=== PATIENT | male | born 1950 | race Caucasian/White ===

== ENCOUNTER 2017-11-30 13:42 | Inpatient (IN) | payer MEDICARE ==
[~2017-11-30] VITALS: Ht 167.6 cm; Wt 57.8 kg
[2017-11-30] VITALS (11 sets, daily range): BP systolic 100–120; BP diastolic 53–72
--- NOTE | ~2017-11-30 | EKG ---
[place], [place] ELECTROCARDIOGRAM REPORT NAME: GENARO FISHER UNIT #: [id number] ROOM: [facility] DOCTOR: NEMESIO DRAFT REPORT BIRTHDATE: [birth year] [facility] Test Date: 2017-11-30 Test Time: 15:26:36 Pat Name: GENARO FISHER Department: Room: [facility] Gender: M [employer] Operator: : [id number] Requested By: JEFFREY ALBERT Order Number: [id number] Reading MD: Hermelinda Solis MD Measurements Intervals Elfrida Rate: 88 P: -75 DC: 107 QRS: 24 QRSD: 81 T: 65 QT: 349 QTc: 423 Interpretive Statements Sinus or ectopic atrial rhythm Short DC interval Electronically Signed On 12-01-2017 11:11:35 PDT by Hermelinda Solis MD CM:EKGRPT:ELECTROCARDIOGRAM REPORT [id number] JEFFREY HERR DRAFT REPORT JEFFREY ALBERT M.D.
--- NOTE | ~2017-11-30 | O ---
[place], [place] OPERATIVE NOTE NAME: GENARO FISHER UNIT #: [id number] ROOM: [facility] DOCTOR: CHRISTY BENNETT MD BIRTHDATE: [birth year] DOS: 12/02/2017 HISTORY OF PRESENT ILLNESS: The patient has presented with chief complaint of black tarry stool, profound anemia, drop in H and H, on nonsteroidal anti-inflammatory tablets, multiple Advil per day in addition to nicotine and alcohol. Today's procedure part of investigation is panendoscopy plus biopsy and photographic series. PREMEDICATION: Versed and propofol. SCOPE: Olympus forward-viewing gastroscope Q10 video. REPORT: After putting the patient in left lateral position and application of lubricant to the scope, the scope was introduced. Thereafter, under direct visualization, I advanced the length of esophagus without difficulty. Large hiatal hernia was noticed. Gastric pouch was entered. Multiple very large ulcerations deeply scarred in antrum were identified. A photograph was obtained. Margin of one of the ulcers was biopsied. The ulcers are estimated at 2.5 cm x 1 cm multiple. At proximity of pyloric ring with 2 cm distance. Duodenal bulb, second and third part within normal limit. Air was suctioned out. The patient was extubated, tolerated the procedure well. IMPRESSION: 1. Multi antral ulcerations secondary to nonsteroidal anti-inflammatory. 2. Large hiatal hernia. PLAN AND DISCUSSION: We are going to give him GERD diet. We are going to aggressively address his ulcers, double dose Protonix 40 mg IV b.i.d., sucralfate 2 grams slurry 2 hours before meals and at bedtime and while he is inpatient and as outpatient, Protonix 40 mg daily in the morning and Carafate 2 grams before meals and at bedtime for one month's duration. The patient advised to abstain from smoking, alcohol, particularly advised him to abstain from Advil product and nonsteroidal anti-inflammatory, perhaps his pain management should be undertaken with acetaminophen products or Ultram as alternatives. [place], [place] OPERATIVE NOTE NAME: GENARO FISHER UNIT #: [id number] ROOM: [facility] DOCTOR: CHRISTY BENNETT MD BIRTHDATE: [birth year] CHRISTY BENNETT MD CM:MAY:OPERATIVE NOTE 1906 [id number] CHRISTY BENNETT MD 12/03/17 0144 interface
--- NOTE | ~2017-11-30 | CON ---
[place], [place] REPORT OF CONSULTATION NAME: GENARO FISHER UNIT #: [id number] ROOM: [facility] DOCTOR: CHRISTY BENNETT MD BIRTHDATE: [birth year] DOS: 12/02/2017 GASTRO ENDOSCOPIC REPORT HISTORY OF PRESENT ILLNESS: A 67-year-old patient who has presented with chief complaint of periodic melanotic stool. The patient has been taking Advil 3-6 tablets a day p.r.n. for chronic back pain and he has been consuming large volumes of alcohol, particularly on binge. At the time of admission to the Emergency Room, his H and H was 7 and 21 with platelets of 160. Serum magnesium was 1.4, which was addressed. INR was normal. Electrolytes: Potassium was 3.4. Liver function tests were noticed borderline normal. CBC, drop in H and H to 6 and 20 was noticed. Hemoglobin A1c was normal. His latest CBC after transfusion, improved to 9 and 27. Comprehensive metabolic panel: Potassium is still low at 3.2 today. Alkaline phosphatase 40. PAST MEDICAL HISTORY: He has not seen physician he says all his life nearly. His past history otherwise so far, his nicotine dependency, alcohol dependency and chronic lower back pain. Advil, multiple tablets per day. Black tarry stool periodically. PAST SURGICAL HISTORY: Lower back. SOCIAL HISTORY: Smoker, alcohol consumer heavily. ALLERGIES: No known medication. REVIEW OF SYSTEMS: HEENT: Denies double vision, blurred vision. RESPIRATORY: Denies acute shortness of breath. CARDIOVASCULAR: Denies acute chest pain. DIGESTIVE SYSTEM: Black tarry stool. No dyspepsia. PHYSICAL EXAMINATION: GENERAL: Reveals frail patient. HEENT: Within normal limits. Mouth and buccal mucosa benign, extremely poor dental hygiene. NECK: Supple, no thyromegaly, no cervical lymphadenopathy. CHEST: Symmetric anatomy, COPD characteristic, scattered rhonchi. HEART: Normal sinus rhythm, no gallop, no murmur. ABDOMEN: Soft. No hepato-organomegaly. Bowel sounds present. No pulsatile mass. EXTREMITIES: No cyanosis, no pedal edema. NEUROLOGIC: Alert, oriented to time, place, person. IMPRESSION: Intermittent black tarry stool on nonsteroidal anti-inflammatory, multiple tablets a day, smoker and alcohol consumer simultaneously, ruling out peptic ulcer disease as a source of bleed. PLAN AND DISCUSSION: Endoscopic assessment of upper GI tract. [place], [place] REPORT OF CONSULTATION NAME: GENARO FISHER UNIT #: [id number] ROOM: [facility] DOCTOR: SABRINA FORTE,CHRISTY BIRTHDATE: [birth year] Other adjunctive diagnoses as outlined in paragraph of past medical, surgical history. CHRISTY BENNETT MD CM:CONSTR:REPORT OF CONSULTATION 1906 12/03/17 0135 interface
[2017-11-30] MEDS ORDERED: IBU800 M1 PO (13:56)
[2017-11-30 14:03] LABS: BASO % 0.1 % (0.0-1.0); HEMATOCRIT 21.8 % (42.0-52.0); HEMOGLOBIN 7.4 g/dl (14.0-18.0); LYMPH % 13.1 % (27.0-41.0); MEAN CELL VOLUME 89.7 fl (80.0-94.0); MEAN CORPUSCULAR HGB 30.5 pg (27.0-31.0); MEAN CORPUSCULAR HGB CONC 33.9 g/dl (33.0-37.0); MEAN PLATELET VOLUME 10.3 fl (9.6-12.3); MONO # 0.4 10*3/uL (0.1-1.0); MONO % 5.6 % (3.0-9.0); NEUT # 6.3 10*3/uL (2.3-7.9); NEUT % 80.4 % (47.0-73.0); PLATELET COUNT AUTOMATED 160 10*3/uL (130-400); RED BLOOD COUNT 2.43 10*6/uL (4.50-5.90); RED CELL DISTRI WIDTH 15.6 % (0-14.5); WHITE BLOOD COUNT 7.8 10*3/uL (4.8-10.8)
[2017-11-30 14:20] LABS: ALBUMIN 2.7 gm/dl (3.1-4.5); ALKALINE PHOSPHATASE 47 U/L (45-117); BUN 49 mg/dl (7-24); CHLORIDE 105 mmol/L (98-107); CREATININE 0.76 mg/dL (0.70-1.30); POTASSIUM 3.4 mmol/L (3.5-5.1); SGOT/AST 39 IU/L (3-35); SGPT/ALT 51 U/L (12-78); SODIUM 139 mmol/L (136-145); TOTAL PROTEIN 5.9 gm/dL (6.4-8.2)
[2017-12-01] VITALS (11 sets, daily range): BP systolic 97–132; BP diastolic 41–59
[2017-12-01 06:01] LABS: BASO % 0.4 % (0.0-1.0); EOS # 0.1 10*3/uL (0.0-0.4); EOS % 1.5 % (1.0-4.0); HEMATOCRIT 20.4 % (42.0-52.0); HEMOGLOBIN 6.9 g/dl (14.0-18.0); LYMPH # 0.8 10*3/uL (1.3-4.4); LYMPH % 16.8 % (27.0-41.0); MEAN CELL VOLUME 91.9 fl (80.0-94.0); MEAN CORPUSCULAR HGB 31.1 pg (27.0-31.0); MEAN CORPUSCULAR HGB CONC 33.8 g/dl (33.0-37.0); MEAN PLATELET VOLUME 11.3 fl (9.6-12.3); MONO # 0.4 10*3/uL (0.1-1.0); MONO % 8.2 % (3.0-9.0); NEUT # 3.5 10*3/uL (2.3-7.9); NEUT % 72.3 % (47.0-73.0); RED BLOOD COUNT 2.22 10*6/uL (4.50-5.90); RED CELL DISTRI WIDTH 15.1 % (0-14.5); WHITE BLOOD COUNT 4.8 10*3/uL (4.8-10.8)
[2017-12-01 06:02] LABS: PLATELET COUNT AUTOMATED 111 10*3/uL (130-400)
[2017-12-01 06:12] LABS: ALBUMIN 2.2 gm/dl (3.1-4.5); ALKALINE PHOSPHATASE 37 U/L (45-117); CHLORIDE 109 mmol/L (98-107); CREATININE 0.56 mg/dL (0.70-1.30); POTASSIUM 2.9 mmol/L (3.5-5.1); SGOT/AST 29 IU/L (3-35); SGPT/ALT 36 U/L (12-78); SODIUM 139 mmol/L (136-145); TOTAL PROTEIN 4.8 gm/dL (6.4-8.2)
[2017-12-01 06:25] LABS: BUN 23 mg/dl (7-24)
[2017-12-02] VITALS (10 sets, daily range): BP systolic 118–156; BP diastolic 60–87
[2017-12-02 05:59] LABS: ALBUMIN 2.2 gm/dl (3.1-4.5); CHLORIDE 109 mmol/L (98-107); CREATININE 0.54 mg/dL (0.70-1.30); POTASSIUM 3.2 mmol/L (3.5-5.1); SGOT/AST 35 IU/L (3-35); SGPT/ALT 40 U/L (12-78); SODIUM 140 mmol/L (136-145); TOTAL PROTEIN 4.9 gm/dL (6.4-8.2)
[2017-12-02 06:00] LABS: ALKALINE PHOSPHATASE 40 U/L (45-117); BASO % 0.5 % (0.0-1.0); EOS # 0.1 10*3/uL (0.0-0.4); EOS % 2.5 % (1.0-4.0); LYMPH # 0.9 10*3/uL (1.3-4.4); LYMPH % 15.8 % (27.0-41.0); MEAN CELL VOLUME 91.3 fl (80.0-94.0); MEAN CORPUSCULAR HGB 31.3 pg (27.0-31.0); MEAN CORPUSCULAR HGB CONC 34.3 g/dl (33.0-37.0); MEAN PLATELET VOLUME 10.7 fl (9.6-12.3); MONO # 0.4 10*3/uL (0.1-1.0); MONO % 7.1 % (3.0-9.0); NEUT # 4.1 10*3/uL (2.3-7.9); NEUT % 73.6 % (47.0-73.0); PLATELET COUNT AUTOMATED 127 10*3/uL (130-400); RED CELL DISTRI WIDTH 14.6 % (0-14.5); WHITE BLOOD COUNT 5.5 10*3/uL (4.8-10.8)
[2017-12-02 06:20] LABS: HEMATOCRIT 27.4 % (42.0-52.0); HEMOGLOBIN 9.4 g/dl (14.0-18.0)
[2017-12-02 07:04] LABS: BUN 10 mg/dl (7-24)
[2017-12-03] VITALS: BP 132/70
[2017-12-03 04:00] VITALS: BP 140/70
[2017-12-03 05:54] LABS: ALBUMIN 2.1 gm/dl (3.1-4.5); ALKALINE PHOSPHATASE 45 U/L (45-117); BUN 7 mg/dl (7-24); CHLORIDE 102 mmol/L (98-107); CREATININE 0.57 mg/dL (0.70-1.30); POTASSIUM 2.9 mmol/L (3.5-5.1); SGOT/AST 25 IU/L (3-35); SGPT/ALT 32 U/L (12-78); SODIUM 135 mmol/L (136-145); TOTAL PROTEIN 4.9 gm/dL (6.4-8.2)
[2017-12-03 05:56] LABS: BASO % 0.3 % (0.0-1.0); EOS # 0.1 10*3/uL (0.0-0.4); EOS % 1.5 % (1.0-4.0); HEMATOCRIT 27.5 % (42.0-52.0); HEMOGLOBIN 9.4 g/dl (14.0-18.0); LYMPH # 0.8 10*3/uL (1.3-4.4); LYMPH % 12.4 % (27.0-41.0); MEAN CORPUSCULAR HGB 31.4 pg (27.0-31.0); MEAN CORPUSCULAR HGB CONC 34.2 g/dl (33.0-37.0); MEAN PLATELET VOLUME 10.6 fl (9.6-12.3); MONO # 0.6 10*3/uL (0.1-1.0); MONO % 8.8 % (3.0-9.0); NEUT # 5.1 10*3/uL (2.3-7.9); NEUT % 76.6 % (47.0-73.0); RED BLOOD COUNT 2.99 10*6/uL (4.50-5.90); RED CELL DISTRI WIDTH 14.3 % (0-14.5); WHITE BLOOD COUNT 6.7 10*3/uL (4.8-10.8)
[2017-12-03 06:08] LABS: PLATELET COUNT AUTOMATED 167 10*3/uL (130-400)
[2017-12-03 08:00] VITALS: BP 137/69
[2017-12-03 12:00] VITALS: BP 121/68
[2017-12-03 16:00] VITALS: BP 124/63
[2017-12-03 20:00] VITALS: BP 117/54
[2017-12-04] VITALS: BP 120/53
[2017-12-04 06:27] LABS: BASO % 0.4 % (0.0-1.0); EOS # 0.1 10*3/uL (0.0-0.4); EOS % 2.5 % (1.0-4.0); HEMATOCRIT 27.8 % (42.0-52.0); HEMOGLOBIN 9.6 g/dl (14.0-18.0); LYMPH # 0.8 10*3/uL (1.3-4.4); LYMPH % 14.7 % (27.0-41.0); MEAN CELL VOLUME 91.7 fl (80.0-94.0); MEAN CORPUSCULAR HGB 31.7 pg (27.0-31.0); MEAN CORPUSCULAR HGB CONC 34.5 g/dl (33.0-37.0); MEAN PLATELET VOLUME 10.4 fl (9.6-12.3); MONO # 0.6 10*3/uL (0.1-1.0); MONO % 10.1 % (3.0-9.0); NEUT # 4.1 10*3/uL (2.3-7.9); NEUT % 71.8 % (47.0-73.0); RED BLOOD COUNT 3.03 10*6/uL (4.50-5.90); WHITE BLOOD COUNT 5.7 10*3/uL (4.8-10.8)
[2017-12-04 06:35] LABS: PLATELET COUNT AUTOMATED 225 10*3/uL (130-400)
[2017-12-04 06:59] LABS: ALBUMIN 2.1 gm/dl (3.1-4.5); ALKALINE PHOSPHATASE 42 U/L (45-117); BUN 5 mg/dl (7-24); SGOT/AST 19 IU/L (3-35); SGPT/ALT 27 U/L (12-78); TOTAL PROTEIN 4.9 gm/dL (6.4-8.2)
[2017-12-04 07:07] LABS: CHLORIDE 104 mmol/L (98-107); POTASSIUM 3.4 mmol/L (3.5-5.1); SODIUM 138 mmol/L (136-145)
[2017-12-04 08:00] VITALS: BP 109/64
[2017-12-04] MEDS ORDERED: PROTONIX40 MG PO (10:58)
[2017-12-04] MEDS ORDERED: Carafate1 GM/10 ML PO (10:58)
== END 2017-12-04 13:42 | disposition home or self-care (01) | DRG 377 ==
LOC: ED 13:42 → ICCU 16:38 → EDHOLD 16:38 → 5E 16:59 → ICCU 17:47 → 5E 12-03 18:16
PROVIDERS: Emergency Medicine; Family Medicine; Internal Medicine; Internal Medicine Gastroenterology
PROC: 30233N1 Transfusion of Nonautologous Red Blood Cells into Peripheral Vein, Percutaneous Approach (ICD-10-PCS; 2017-12-01)
PROC: 0DB68ZX Excision of Stomach, Via Natural or Artificial Opening Endoscopic, Diagnostic (ICD-10-PCS; principal; 2017-12-02)
DX: K29.71 Gastritis, unspecified, with bleeding (principal); E43 Unspecified severe protein-calorie malnutrition; E83.42 Hypomagnesemia; E88.09 Other disorders of plasma-protein metabolism, not elsewhere classified; D62 Acute posthemorrhagic anemia; F10.10 Alcohol abuse, uncomplicated; E86.0 Dehydration; E87.6 Hypokalemia; K25.4 Chronic or unspecified gastric ulcer with hemorrhage; G89.29 Other chronic pain; M54.9 Dorsalgia, unspecified; T39.395A Adverse effect of other nonsteroidal anti-inflammatory drugs [NSAID], initial encounter; F17.210 Nicotine dependence, cigarettes, uncomplicated; K44.9 Diaphragmatic hernia without obstruction or gangrene; R00.0 Tachycardia, unspecified; R73.9 Hyperglycemia, unspecified; R74.0 Nonspecific elevation of levels of transaminase and lactic acid dehydrogenase [LDH]; Z71.6 Tobacco abuse counseling; Z98.1 Arthrodesis status; Z83.3 Family history of diabetes mellitus; Z82.49 Family history of ischemic heart disease and other diseases of the circulatory system; Z79.1 Long term (current) use of non-steroidal anti-inflammatories (NSAID); Y92.89 Other specified places as the place of occurrence of the external cause; Z68.20 Body mass index [BMI] 20.0-20.9, adult

== ENCOUNTER → 2017-12-12 | Outpatient (CLI) | payer MEDICARE ==
[~2017-12-12] MED LIST: Carafate1 GM/10 ML PO; IBU800 M1 PO; PROTONIX40 MG PO
== END | disposition home or self-care (01) ==
LOC: RESCLI 04:30
DX: Z09 Encounter for follow-up examination after completed treatment for conditions other than malignant neoplasm (principal); K29.70 Gastritis, unspecified, without bleeding; K25.3 Acute gastric ulcer without hemorrhage or perforation; K44.9 Diaphragmatic hernia without obstruction or gangrene; M54.9 Dorsalgia, unspecified; G89.29 Other chronic pain; Z72.0 Tobacco use; Z71.6 Tobacco abuse counseling; Z53.20 Procedure and treatment not carried out because of patient's decision for unspecified reasons; Z76.89 Persons encountering health services in other specified circumstances

== ENCOUNTER 2019-11-13 22:34 | Inpatient (IN) | payer MEDICARE ==
[~2019-11-13] VITALS: Ht 167.6 cm; Wt 57.4 kg
[2019-11-13 22:35] VITALS: BP 137/80
--- NOTE | 2019-11-13 23:17 | NUR ---
300 BOLUS NS PER EMS 1L FLUIDS RUNNING UPON ARRIVAL PER EMS
[2019-11-13 23:29] LABS: BASO % 0.8 % (0.0-1.0); EOS % 0.8 % (1.0-4.0); HEMATOCRIT 37.1 % (42.0-52.0); LYMPH # 0.3 10*3/uL (1.3-4.4); LYMPH % 10.4 % (27.0-41.0); MEAN CELL VOLUME 82.8 fl (80.0-94.0); MEAN CORPUSCULAR HGB 30.1 pg (27.0-31.0); MEAN CORPUSCULAR HGB CONC 36.4 g/dl (33.0-37.0); MEAN PLATELET VOLUME 10.2 fl (9.6-12.3); MONO # 0.4 10*3/uL (0.1-1.0); NEUT # 1.7 10*3/uL (2.3-7.9); NEUT % 69.6 % (47.0-73.0); PLATELET COUNT AUTOMATED 132 10*3/uL (130-400); RED BLOOD COUNT 4.48 10*6/uL (4.50-5.90); RED CELL DISTRI WIDTH 14.5 % (0-14.5); WHITE BLOOD COUNT 2.5 10*3/uL (4.8-10.8)
[2019-11-13 23:43] LABS: ALBUMIN 2.8 gm/dl (3.1-4.5); ALKALINE PHOSPHATASE 93 U/L (45-117); BUN 6 mg/dl (7-24); CHLORIDE 85 mmol/L (98-107); CREATININE 0.67 mg/dL (0.70-1.30); LIPASE 262 U/L (73-393); POTASSIUM 2.6 mmol/L (3.5-5.1); SGOT/AST 148 IU/L (3-35); SGPT/ALT 243 U/L (12-78); SODIUM 122 mmol/L (136-145); TROPONIN I < 0.015 ng/ml (<0.045)
[2019-11-14 00:05] LABS: COLOR YELLOW (YELLOW)
[2019-11-14 00:06] LABS: BILIRUBIN NEGATIVE (NEGATIVE); BLOOD NEGATIVE (NEGATIVE); CLARITY CLEAR (CLEAR); GLUCOSE NEGATIVE (NEGATIVE); KETONE NEGATIVE (NEGATIVE); LEUKO ESTERASE NEGATIVE (NEGATIVE); NITRITE NEGATIVE (NEGATIVE); PH 7.5 (5.0-9.0); SPECIFIC GRAVITY 1.005 (1.005-1.030); UROBILINOGEN 0.2 E.U./dl (0.2-1.0)
[2019-11-14 00:08] LABS: BACTERIA TRACE; EPITHELIAL CELLS 0-2; RBC 0-2 rbc/hpf (0-2); WBC 0-2 wbc/hpf (0-5)
[2019-11-14 01:08] LABS: ACT PARTIAL THROMBO TIME 31.3 SECONDS (20.0-32.1); INTERNATIONAL NORM RATIO 1.1 (2.0-3.5)
[2019-11-14 01:14] LABS: URINE AMPHETAMINES < 1000 (1000ng/ml); URINE BARBITURATES < 200 (200ng/ml); URINE BENZODIAZEPINES < 200 (200ng/ml); URINE CANNABINOIDS (THC) < 50 (50ng/ml); URINE COCAINE < 300 (300ng/ml); URINE METHADONE < 300 (300ng/ml); URINE OPIATES < 300 (300ng/ml); URINE PHENCYCLIDINE < 25 (25ng/ml)
[2019-11-14 01:20] LABS: ACETAMINOPHEN (TYLENOL) < 5.0 ug/ml (10-30); ETHYL ALCOHOL < 3.0 mg/dl (<3)
--- NOTE | 2019-11-14 01:30 | NUR ---
PT REFUSED PHOTOS OPEN AREA OF RASH LOWER BACK/COCCYX REGION/RIGHT FOREARM, PT STATES HE HAS BEEN TREATED BY A [place] TECHNICIAN FOR RASH, STATES HE HAS CREAM BUT HAS NOT BEEN USING IT
--- NOTE | 2019-11-14 01:50 | NUR ---
PT STATES HE IS "FEELING MUCH BETTER" STATES "HE THINKS HE COULD GO HOME"
[2019-11-14 02:00] VITALS: BP 127/64
--- NOTE | 2019-11-14 02:03 | NUR ---
PT HAS RASH ON BILAT ARMS, CHEST, BILAT LOWER EXTREM
--- NOTE | 2019-11-14 02:04 | NUR ---
FAXED SBAR TO [facility]E
--- NOTE | 2019-11-14 02:10 | NUR ---
PT GAIT UNSTEADY UPON AMBULATING TO BED
[2019-11-14 02:12] VITALS: BP 127/64
--- NOTE | 2019-11-14 02:12 | NUR ---
A 69, admitted to , under the services of PETER Riojas DO with a diagnosis of LEUKOPENIA, RASH AND OTHER NON-SPECIFIC SKIN ERUPTION, HYPOKALEMIA, HYPONATREMIA, HYPOMAGNASEMIA. Chief complaint is WEAKNESS, DIZZINESS. [facility] Monitor applied. Initial assessment completed. Vital signs taken and recorded. PETER RIOJAS DO notified of admission to the unit. Orders received. See assessment for past medical history, medications and allergies. Patient and/or family oriented to unit. visitation policy reviewed. Clothing/patient valuable form completed. GREGORIO CHOPRA
--- NOTE | 2019-11-14 03:27 | NUR ---
PATIENT REFUSED TO HAVE PHOTOS TAKEN OF RASH ON BILATERAL ARMS, CHEST AND LUMBAR AREA. ALSO REFUSED TO HAVE NURSE LOOK AT RASH ON LOWER BACK AND COCCYX AREA AND REFUSES TO HAVE ANY TREATMENT. SAYS HE FOLLOWS WITH A WAREHOUSE HAND.
[2019-11-14 06:34] LABS: BASO % 0.7 % (0.0-1.0); HEMATOCRIT 37.1 % (42.0-52.0); LYMPH # 0.3 10*3/uL (1.3-4.4); LYMPH % 10.7 % (27.0-41.0); MEAN CELL VOLUME 84.9 fl (80.0-94.0); MEAN CORPUSCULAR HGB 29.7 pg (27.0-31.0); MEAN PLATELET VOLUME 11.5 fl (9.6-12.3); MONO # 0.4 10*3/uL (0.1-1.0); MONO % 14.7 % (3.0-9.0); NEUT # 2.2 10*3/uL (2.3-7.9); NEUT % 72.2 % (47.0-73.0); PLATELET COUNT AUTOMATED 127 10*3/uL (130-400); RED BLOOD COUNT 4.37 10*6/uL (4.50-5.90); RED CELL DISTRI WIDTH 14.9 % (0-14.5)
[2019-11-14 06:39] LABS: ALBUMIN 2.6 gm/dl (3.1-4.5); ALKALINE PHOSPHATASE 92 U/L (45-117); BUN 6 mg/dl (7-24); CHLORIDE 95 mmol/L (98-107); CHOLESTEROL 128 mg/dL (<200); CREATININE 0.67 mg/dL (0.70-1.30); FREE T4 1.18 ng/dl (0.76-1.46); HDL CHOLESTEROL 39 mg/dl (40-60); LDL CHOLESTEROL 75 mg/dL (9-159); POTASSIUM 3.4 mmol/L (3.5-5.1); SGOT/AST 120 IU/L (3-35); SGPT/ALT 221 U/L (12-78); SODIUM 130 mmol/L (136-145); TOTAL PROTEIN 5.9 gm/dL (6.4-8.2); TRIGLYCERIDES 72 mg/dl (<150); VLDL CHOLESTEROL 14 mg/dL (6-40)
[2019-11-14 08:00] VITALS: BP 113/49
[2019-11-14 08:05] LABS: VITAMIN D, 25-HYDROXY 47.8 ng/mL (30-100)
--- NOTE | 2019-11-14 08:17 | NUR ---
PT REFUSED LOVENOX DESPITE EDUCATION.
--- NOTE | 2019-11-14 08:51 | NUR ---
ASSISTED PATIENT OOB TO RESTROOM. STEADY WITH 1 ASSIST. WILL CONTINUE TO MONITOR.
[2019-11-14 12:00] VITALS: BP 122/63
--- NOTE | 2019-11-14 12:01 | NUR ---
PT MEDICATED WITH TYLENOL PO PER PRN ORDER FOR C/O HEADACHE. WILL MONITOR EFFECTIVENESS.
[2019-11-14 12:14] LABS: BUN 5 mg/dl (7-24); CHLORIDE 96 mmol/L (98-107); CREATININE 0.63 mg/dL (0.70-1.30); SODIUM 129 mmol/L (136-145)
--- NOTE | 2019-11-14 13:01 | NUR ---
TYLENOL EFFECTIVE PER PT. WILL CONTINUE TO MONITOR.
[2019-11-14 16:00] VITALS: BP 119/58
--- NOTE | 2019-11-14 19:00 | NUR ---
ASSUMED CARE FOR THIS PT AT THIS TIME. PT DENIES DIZZINESS. GENERAL WEAKNESS NOTED. CALL LIGHT IN REACH.
[2019-11-14 20:00] VITALS: BP 117/60
[2019-11-15] VITALS: BP 130/75
--- NOTE | 2019-11-15 04:22 | NUR ---
24 HR chart check completed.
[2019-11-15 06:14] LABS: BASO % 0.8 % (0.0-1.0); EOS % 1.6 % (1.0-4.0); HEMATOCRIT 37.5 % (42.0-52.0); LYMPH # 0.5 10*3/uL (1.3-4.4); LYMPH % 18.5 % (27.0-41.0); MEAN CELL VOLUME 85.6 fl (80.0-94.0); MEAN CORPUSCULAR HGB 29.9 pg (27.0-31.0); MEAN CORPUSCULAR HGB CONC 34.9 g/dl (33.0-37.0); MEAN PLATELET VOLUME 10.1 fl (9.6-12.3); MONO # 0.4 10*3/uL (0.1-1.0); MONO % 14.6 % (3.0-9.0); NEUT # 1.6 10*3/uL (2.3-7.9); NEUT % 61.7 % (47.0-73.0); PLATELET COUNT AUTOMATED 164 10*3/uL (130-400); RED BLOOD COUNT 4.38 10*6/uL (4.50-5.90); RED CELL DISTRI WIDTH 15.3 % (0-14.5); WHITE BLOOD COUNT 2.5 10*3/uL (4.8-10.8)
[2019-11-15 06:34] LABS: BUN 6 mg/dl (7-24); CHLORIDE 96 mmol/L (98-107); CREATININE 0.67 mg/dL (0.70-1.30); POTASSIUM 3.7 mmol/L (3.5-5.1); SODIUM 131 mmol/L (136-145)
[2019-11-15 08:00] VITALS: BP 132/77
--- NOTE | 2019-11-15 08:16 | NUR ---
PATIENT SITTING UP IN BED, EATING BREAKFAST. RESPIRATIONS EASY, REGULAR ON RA. PT APPEARS MUCH MORE ALERT AND ORIENTED THIS AM. DENIES ANY DIZZINESS UPON STANDING. WILL CONTINUE TO MONITOR. VSS. CALL LIGHT WITHIN REACH.
--- NOTE | 2019-11-15 11:46 | NUR ---
IV FLUIDS INITIATED AT THIS TIME PER ORDER. WILL CONTINUE TO MONITOR.
[2019-11-15 12:00] VITALS: BP 146/82
[2019-11-15 16:00] VITALS: BP 140/71
--- NOTE | 2019-11-15 19:49 | NUR ---
PATIENT RESTING IN BED WITH NO NEEDS MADE. BED IN LOWEST POSITION, CALL LIGHT IN REACH
[2019-11-15 20:00] VITALS: BP 127/56
--- NOTE | 2019-11-15 23:29 | NUR ---
PATIENT MEDICATED WITH PRN RESTORIL FOR C/O INSOMNIA. WILL MONITOR
[2019-11-16] VITALS: BP 130/67
--- NOTE | 2019-11-16 00:29 | NUR ---
MEDICATION EFFECTIVE. PATIENT RESTING WITH EYES CLOSED
--- NOTE | 2019-11-16 02:48 | NUR ---
24 HR chart check completed.
[2019-11-16 06:10] LABS: BUN 7 mg/dl (7-24); CHLORIDE 97 mmol/L (98-107); CREATININE 0.58 mg/dL (0.70-1.30); POTASSIUM 3.7 mmol/L (3.5-5.1); SODIUM 131 mmol/L (136-145)
[2019-11-16 06:25] LABS: EOS % 1.3 % (1.0-4.0); LYMPH # 0.6 10*3/uL (1.3-4.4); MEAN CELL VOLUME 84.5 fl (80.0-94.0); MEAN CORPUSCULAR HGB 29.5 pg (27.0-31.0); MEAN CORPUSCULAR HGB CONC 34.9 g/dl (33.0-37.0); MEAN PLATELET VOLUME 10.2 fl (9.6-12.3); MONO # 0.4 10*3/uL (0.1-1.0); MONO % 14.3 % (3.0-9.0); NEUT # 1.9 10*3/uL (2.3-7.9); NEUT % 63.1 % (47.0-73.0); PLATELET COUNT AUTOMATED 200 10*3/uL (130-400); RED BLOOD COUNT 4.38 10*6/uL (4.50-5.90); RED CELL DISTRI WIDTH 15.2 % (0-14.5)
--- NOTE | 2019-11-16 06:38 | NUR ---
PATIENT PULLED OUT IV AFTER BEING TOLD IT NEEDED TO REMAIN IN. PATIENT IS REFUSING NEW IV PLACEMENT AFTER EDUCATION PROVIDED
--- NOTE | 2019-11-16 07:49 | NUR ---
PHYSICAL THERAPY Screen and PT eval received will follow thank you. Sara Vazquez PT
--- NOTE | 2019-11-16 07:51 | NUR ---
Occupational therapy order and nursing screen received. Will follow up with patient for completion of an OT evaluation. Thank you. Roshni Meyer, OTR/L
[2019-11-16 08:00] VITALS: BP 106/60
--- NOTE | 2019-11-16 08:00 | NUR ---
PATIENT AWAKE, ALERT AND ORIENTED SITTING UP IN BED. NO STATED COMPLAINTS AT THIS TIME. DENIES ANY PAIN. STATES HE IS READY TO GO HOME. BED IN LOWEST LOCKED POSITION. CALL LIGHT WITHIN REACH. PT REPOSITIONS SELF AND IS ENCOURAGED TO DO SO. WILL CONTINUE TO MONITOR.
--- NOTE | 2019-11-16 08:02 | NUR ---
GENARO FISHER [id number] Please refer to the physician's history and physical for past medical history, comorbid conditions, and allergies. Diagnosis: LEUKOPENIA, RASH & OTHER NONSPECIFIC SKIN ERUPTION Mack Score: 21,LOW OR NO RISK WOUND DESCRIPTIONS: Patient states he followed with dermatology and they told him that it would just go away on its own. Dermatology did not tell him what it was. Patient states that the [facility] gave him a cream for these areas but cannot recall the name. Patient has red and pink areas to bilateral upper extremities, trunk and bilateral lower extremities. No drainage or open areas noted at time of assessment. Areas are dry. Patient denied any other wounds at time of assessment. Patient refused to have areas measured or photographed. Surface the patient is resting on: Isoflex SKIN PREVENTION RECOMMENDATION: 1. Pressure redistribution support surface as appropriate 2. Elevate heels 3. Remove boots/TEDS every shift and reapply 4. Head of bed 30 degrees as tolerated 5. Assess nutrition and hydration 6. Manage moisture 7. Avoid the use of containment devices while in bed 8. Use absorptive products on surfaces limit layers of linens on bed 9. Turn and reposition every 1-2 hours in bed and every 1 hour in chair as tolerated 10. Weight shifts every 15 minutes while up in chair 11. Offloading with pillows or device to keep heels elevated off bed 12. Monitor skin at least every shift 13. Inspect under medical devices twice a day WOUND TREATMENT RECOMMENDATIONS: Follow up with dermatology when discharged. Aquaphor to bilateral upper extremities, trunk and bilateral lower legs twice a day.
--- NOTE | 2019-11-16 09:47 | NUR ---
Dr. Devries notified of wound care recommendations.
--- NOTE | 2019-11-16 10:11 | NUR ---
PHYSICAL THERAPY PT des received chart reviewed, per nsg pt has been discharged awaiting ride to leave hospital, no PT indicated at this time. Sara Vazquez PT
--- NOTE | 2019-11-16 10:13 | NUR ---
OT NOTE Occupational therapy order received and chart reviewed. Per discussion with nurse, patient is being discharged this AM and awaiting on ride. No further Ot indicated. Thank you. Roshni Meyer, OTR/L
[2019-11-16 12:00] VITALS: BP 111/69
--- NOTE | 2019-11-16 13:11 | NUR ---
[facility] in to talk to patient. Patient states lives at HOME with FRIENDS. There are [address] in the home. Physician: NONE AT THIS TIME Pharmacy: [facility] Home health services: NONE Patient's level of ADLs: INDEPENDENT Patient has working utilities: YES DME: NONE Follow-up physician's appointment after d/c: WILL BE MADE BY HOSPITALIST NURSE DIRECTOR ON DISCHARGE Does patient want to access PORTAL?: NO Discharge plan PT LIVES AT HOME WITH FRIENDS AND IS INDEPENDENT IN HIS CARE. DENIES HE WILL HAVE ANY NEEDS ON DISCHARGE. WILL RETURN HOME WHEN MEDICALLY STABLE. WILL CONTINUE TO FOLLOW. STATES HE WILL HAVE A RIDE HOME.. CHERYL,ALEXSANDRA]
--- NOTE | 2019-11-16 13:40 | NUR ---
Discharge instructions reviewed with patient/family. Patient receptive and verbalizes understanding. Follow-up care arranged. Written instructions given to patient/family. ABNER MCGRAW
== END 2019-11-16 13:40 | disposition home or self-care (01) | DRG 640 ==
LOC: ED 22:34 → EDHOLD 11-14 00:45 → 5E 11-14 00:45
PROVIDERS: Emergency Medicine Emergency Medical Services; Family Medicine; Student in an Organized Health Care Education/Training Program; ADMIT Internal Medicine
DX: E87.1 Hypo-osmolality and hyponatremia (principal); E43 Unspecified severe protein-calorie malnutrition; S22.31XA Fracture of one rib, right side, initial encounter for closed fracture; R21 Rash and other nonspecific skin eruption; D72.819 Decreased white blood cell count, unspecified; E87.8 Other disorders of electrolyte and fluid balance, not elsewhere classified; E83.42 Hypomagnesemia; E87.6 Hypokalemia; F17.210 Nicotine dependence, cigarettes, uncomplicated; R74.0 Nonspecific elevation of levels of transaminase and lactic acid dehydrogenase [LDH]; D69.6 Thrombocytopenia, unspecified; E83.39 Other disorders of phosphorus metabolism; D64.9 Anemia, unspecified; Z71.6 Tobacco abuse counseling; Z87.81 Personal history of (healed) traumatic fracture; Z68.20 Body mass index [BMI] 20.0-20.9, adult

== ENCOUNTER 2021-10-28 14:47 | Emergency (ER) | payer OTHER ==
[~2021-10-28] VITALS: Wt 61.2 kg
[2021-10-28 15:06] LABS: BASO % 0.6 % (0.0-1.0); EOS # 0.2 10*3/uL (0.0-0.4); EOS % 2.8 % (1.0-4.0); HEMATOCRIT 32.2 % (42.0-52.0); LYMPH % 18.5 % (27.0-41.0); MEAN CELL VOLUME 90.7 fl (80.0-94.0); MEAN CORPUSCULAR HGB 30.4 pg (27.0-31.0); MEAN CORPUSCULAR HGB CONC 33.5 g/dl (33.0-37.0); MEAN PLATELET VOLUME 9.4 fl (9.6-12.3); MONO # 0.6 10*3/uL (0.1-1.0); MONO % 11.3 % (3.0-9.0); NEUT # 3.5 10*3/uL (2.3-7.9); NEUT % 65.3 % (47.0-73.0); PLATELET COUNT AUTOMATED 353 10*3/uL (130-400); RED BLOOD COUNT 3.55 10*6/uL (4.50-5.90); RED CELL DISTRI WIDTH 17.3 % (0-14.5); WHITE BLOOD COUNT 5.3 10*3/uL (4.8-10.8)
[2021-10-28 15:23] LABS: ALKALINE PHOSPHATASE 75 U/L (45-117); BUN 5 mg/dl (7-24); CHLORIDE 95 mmol/L (98-107); CPK 94 U/L (39-308); CREATININE 0.52 mg/dL (0.70-1.30); POTASSIUM 3.5 mmol/L (3.5-5.1); SGOT/AST 28 IU/L (3-35); SGPT/ALT 20 U/L (12-78); SODIUM 128 mmol/L (136-145); TOTAL PROTEIN 6.4 gm/dL (6.4-8.2)
[2021-10-28 15:25] LABS: ACT PARTIAL THROMBO TIME 33.4 SECONDS (20.0-32.1)
== END 2021-10-29 15:40 | disposition home or self-care (01) ==
LOC: ED 14:47
PROVIDERS: Emergency Medicine
DX: S42.034A Nondisplaced fracture of lateral end of right clavicle, initial encounter for closed fracture (principal); S01.81XA Laceration without foreign body of other part of head, initial encounter; E87.8 Other disorders of electrolyte and fluid balance, not elsewhere classified; D64.9 Anemia, unspecified; B88.8 Other specified infestations; F10.929 Alcohol use, unspecified with intoxication, unspecified; Y90.9 Presence of alcohol in blood, level not specified; W18.39XA Other fall on same level, initial encounter; Y93.89 Activity, other specified; Y92.89 Other specified places as the place of occurrence of the external cause; Y99.8 Other external cause status